=== PATIENT | male | born 1985 | race Caucasian/White ===

== ENCOUNTER 2017-11-01 02:45 | Emergency (ER) | payer SELFPAY ==
[~2017-11-01] VITALS: Ht 180.3 cm; Wt 96.0 kg
[2017-11-01 02:51] VITALS: BP 140/88
== END 2017-11-01 05:50 | disposition left against medical advice (07) ==
LOC: ER 02:50
DX: M25.522 Pain in left elbow (principal); Z53.21 Procedure and treatment not carried out due to patient leaving prior to being seen by health care provider